=== PATIENT | female | born 1965 | race Caucasian/White ===

== ENCOUNTER 2020-08-03 08:12 | Emergency (ER) | payer SELFPAY ==
[~2020-08-03] VITALS: Ht 182.9 cm; Wt 59.0 kg
[2020-08-03 09:02] LABS: CLARITY,URINE HAZY (CLEAR); COLOR,URINE YELLOW (YELLOW); KETONES,URINE NEGATIVE (NEGATIVE); LEUKOCYTE ESTERASE ,URINE TRACE (NEGATIVE); NITRITE,URINE NEGATIVE (NEGATIVE); PROTEIN,URINE DIPSTICK NEGATIVE (NEGATIVE); URINE UROBILINOGEN 0.2 mg/dL (0.2 - 1)
[2020-08-03 09:28] LABS: BACTERIA,URINE FEW /HPF; EPITHELIAL CELLS,URINE FEW /LPF; RBC,URINE 0-5 /HPF (0-5); WBC,URINE (MAN) 0-5 /HPF (0-5)
[2020-08-03] MEDS ORDERED: BACTRIM DS TAB1 EACH PO (09:41)
[2020-08-03 09:59] VITALS: BP 121/76
== END 2020-08-03 10:12 | disposition home or self-care (01) ==
LOC: ER 08:42
DX: R30.0 Dysuria (principal); N39.0 Urinary tract infection, site not specified; B19.20 Unspecified viral hepatitis C without hepatic coma
CPT/HCPCS: 81001; 81025; 99283